=== PATIENT | female | born 1995 | race Caucasian/White ===

== ENCOUNTER 2016-07-22 22:00 | Emergency (ER) | payer BC ==
[2016-07-22] MEDS ORDERED: traMADol 50 MG Tab PO ONE (22:58)
--- NOTE | 2016-07-22 23:00 | EDM.PDOC ---
ED HPI Trauma - General Chief Complaint: Lower Extremity Injury/Pain Stated Complaint: PT FELL AND HURT RT LEG Time Seen by Provider: 07/22/16 22:52 - History of Present Illness INITIAL COMMENTS - FREE TEXT/NARRATIVE: HISTORY AND PHYSICAL: History of present illness: Patient is a healthy overweight 21-year-old female was in her usual state of good health with no systemic complaints when she slipped and fell on some stairs landing on her lower back and left posterior pelvis area. She did not hit her head pass out or black out and has no upper back pain neck pain or extremity complaints. she's had no nausea and vomiting and complains only of pain in that area. She took 800 mg of Motrin before coming here in the fall happened approximately an hour before presentation to the ER. Patient denies Review of systems: As per history of present illness and below otherwise all systems reviewed and negative. Past medical history: As per history of present illness and as reviewed below otherwise noncontributory. Surgical history: As per history of present illness and as reviewed below otherwise noncontributory. Social history: No reported history of drug or alcohol abuse. Family history: As per history of present illness and as reviewed below otherwise noncontributory. Physical exam: General: Well-developed well-nourished female who is uncomfortable with movement and is overweight. Vital signs blood noted by me HEENT: Atraumatic, normocephalic, negative for conjunctival pallor or scleral icterus, mucous membranes moist, throat clear, neck supple, nontender, trachea midline. There are no midline step-offs or defects of the cervical spine Lungs: Clear to auscultation, breath sounds equal bilaterally, chest nontender. Heart: S1S2, regular rate and rhythm no overt murmurs Abdomen: Soft, nondistended, nontender. NABS Pelvis: Stable nontender. There is no lateral hip tenderness but there is tenderness at palpation of the posterior left pelvis area PC DAC exam Genitourinary: Deferred. Rectal: Deferred. Extremities: Atraumatic, negative for cords or calf pain. Neurovascular unremarkable. Neuro: Awake, alert, oriented. Cranial nerves II through XII unremarkable. Cerebellum unremarkable. Motor and sensory unremarkable throughout. Exam nonfocal. Dorsi and plantar flexion is intact bilaterally 5/5 of the great toe and in inversion and eversion is intact. Back: There are no midline step-offs or defects of the thoracic or lumbar spine but there is exquisite soft tissue tenderness at the lumbar area throughout without ecchymosis abrasion or deformities. Diagnostics: X-ray lumbar spine and left hip with pelvis Therapeutics: Tramadol Impression: Lumbar spine/posterior left hip contusion status post fall Definitive disposition and diagnosis as appropriate pending reevaluation and review of above. Allergies/ADRs: Allergies No Known Allergies Allergy (Verified 07/22/16 22:28) Home Medications: Ambulatory Orders . 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 Musculoskeletal History: Reports: None Neurological History: Reports: None Psychiatric History: Reports: Anxiety Endocrine/Metabolic History: Reports: None Hematologic History: Reports: None Immunologic History: Reports: None Oncologic (Cancer) History: Reports: None Dermatologic History: Reports: None - Infectious Disease History Infectious Disease History: Reports: None - Past Surgical History GI Surgical History: Reports: Cholecystectomy Social & Family History - Family History Family Medical History: Noncontributory - Tobacco Use Smoking Status *Q: Never Smoker - Caffeine Use Caffeine Use: Reports: Soda - Recreational Drug Use Recreational Drug Use: No Review of Systems - Review of Systems Review Of Systems: ROS reveals no pertinent complaints other than HPI. Trauma Exam - Physical Exam Exam: See Below (See dictation) Course - Vital Signs Last Recorded V/S: Last Vital Signs Temp 37.1 C 07/22/16 22:28 Pulse 83 07/22/16 22:28 Resp 16 07/22/16 22:28 BP 136/79 07/22/16 22:28 Pulse Ox 98 07/22/16 22:28 - Orders/Labs/Meds Orders: Active Orders 24 hr Category Date Time Status Hip Min 2V or 3V w Pelvis Lt [CR] Stat Exams 07/22/16 22:57 Taken Lumbar Spine 2 or 3V [CR] Stat Exams 07/22/16 22:57 Taken Meds: Medications Discontinued Medications Generic Name Dose Route Start Last Admin Trade Name Freq PRN Reason Stop Dose Admin Tramadol HCl 100 mg 07/22/16 22:58 Ultram PO 07/22/16 22:59 ONETIME ONE Departure - Departure Time of Disposition: 00:02 Disposition: Home, Self-Care 01 Condition: good Clinical Impression: Contusion of lower back Qualifiers: Encounter type: initial encounter Qualified Code(s): S30.0XXA - Contusion of lower back and pelvis, initial encounter Contusion of hip, left Qualifiers: Encounter type: initial encounter Qualified Code(s): S70.02XA - Contusion of left hip, initial encounter Fall Qualifiers: Encounter type: initial encounter Qualified Code(s): W19.XXXA - Unspecified fall, initial encounter Forms: ED Department Discharge Additional Instructions: The following information is given to patients seen in the emergency department who are being discharged to home. This information is to outline your options for follow-up care. We provide all patients seen in our emergency department with a follow-up referral. The need for follow-up, as well as the timing and circumstances, are variable depending upon the specifics of your emergency department visit. If you don't have a primary care physician on staff, we will provide you with a referral. We always advise you to contact your personal physician following an emergency department visit to inform them of the circumstance of the visit and for follow-up with them and/or the need for any referrals to a consulting specialist. The emergency department will also refer you to a specialist when appropriate. This referral assures that you have the opportunity for followup care with a specialist. All of these measure are taken in an effort to provide you with optimal care, which includes your followup. Under all circumstances we always encourage you to contact your private physician who remains a resource for coordinating your care. When calling for followup care, please make the office aware that this follow-up is from your recent emergency room visit. If for any reason you are refused follow-up, please contact the [facility] emergency department at and ask to speak to the emergency department charge nurse. [facility] Primary care- Internal Medicine and Family [address] [address] Apply ice to areas that are swollen or tender and tried to go slowly with all motions and activities the next one week. Use [id number] Motrin/ibuprofen or Tylenol for pain and take stronger pain medication given to today as needed. You have been prescribed Ultram 50 mg from [email or web address]. Please followup with family doctor for reevaluation and care and return here as needed and as discussed - My Orders Last 24 Hours: My Active Orders 07/22/16 22:57 Hip Min 2V or 3V w Pelvis Lt [CR] Stat Lumbar Spine 2 or 3V [CR] Stat - Assessment/Plan Last 24 Hours: My Active Orders 07/22/16 22:57 Hip Min 2V or 3V w Pelvis Lt [CR] Stat Lumbar Spine 2 or 3V [CR] Stat
[2016-07-23 00:29] VITALS: BP 142/77
--- NOTE | 2016-07-23 11:27 | CR ---
EXAM DATE: 07/22/16 PATIENT'S AGE: 21 Patient: ROGERIO MARIE Facility: [place], [place] Site . Site : 1995 Study: XRay Hip w/ pelvis [id number]/17/2017 11:23:54 PM Ordering Physician: Amandeep Swan Final Report: Indication: Fall. Technique: Pelvis one view. Left hip two views. Comparison: None. Findings: No acute fracture or dislocation. No additional osseous abnormality. Soft tissues as imaged are unremarkable. Impression: No acute osseous abnormality. Dictated by Clement Shook MD @ 07/22/2016 11:43:03 PM Dictated by: Clement Shook MD @ 07/22/2016 23:43:09 (Electronic Signature) Report Signed by Proxy and Original Signed Document filed in the Medical Record. [facility]
--- NOTE | 2016-07-23 11:28 | CR ---
EXAM DATE: 07/22/16 PATIENT'S AGE: 21 Patient: ROGERIO MARIE Facility: [place], [place] Site . Site : 1995 Study: XRay Spine Lumbar [id number]/17/2017 11:24:34 PM Ordering Physician: Amandeep Swan Final Report: INDICATION: Fall. TECHNIQUE: Lumbar spine 3 view. COMPARISON: None. FINDINGS: No evidence of acute fracture or malalignment. No additional osseous abnormality. The soft tissues as imaged are unremarkable. IMPRESSION: Unremarkable lumbar spine. Dictated by Clement Shook MD @ 07/22/2016 11:45:47 PM Dictated by: Clement Shook MD @ 07/22/2016 23:46:00 (Electronic Signature) Report Signed by Proxy and Original Signed Document filed in the Medical Record. [facility]
== END 2016-07-23 00:25 | disposition home or self-care (01) ==
LOC: MW.ED 22:00
DX: S30.0XXA Contusion of lower back and pelvis, initial encounter (principal); S70.02XA Contusion of left hip, initial encounter; Z90.49 Acquired absence of other specified parts of digestive tract; W10.9XXA Fall (on) (from) unspecified stairs and steps, initial encounter
CPT/HCPCS: 72100; 73502; 99283; A9270

== ENCOUNTER 2016-12-10 13:20 | Emergency (ER) | payer BC ==
[2016-12-10] MEDS ORDERED: Albuterol/Ipratropium 3.0-0.5 MG/3 ML Neb Soln NEB ONE (13:59)
--- NOTE | 2016-12-10 14:20 | EDM.PDOC ---
ED HPI GENERAL MEDICAL PROBLEM - General Chief Complaint: Respiratory Problem Stated Complaint: SICK Time Seen by Provider: 12/10/16 14:18 Source of Information: Reports: Patient History Limitations: Reports: No Limitations - History of Present Illness INITIAL COMMENTS - FREE TEXT/NARRATIVE: History of present illness: [21-year-old female comes in complaining of sensation of shortness of breath. Patient indicates that she has been feeling ill for the last several days and it is just in the last day or 2 that she has felt increasing shortness of breath. Patient's vital signs are stable with good O2 sat] Review of systems: As per history of present illness and below otherwise all systems reviewed and negative. Past medical history: As per history of present illness and as reviewed below otherwise noncontributory. Surgical history: As per history of present illness and as reviewed below otherwise noncontributory. Social history: No reported history of drug or alcohol abuse. Family history: As per history of present illness and as reviewed below otherwise noncontributory. Physical exam: HEENT: Atraumatic, normocephalic, pupils reactive, negative for conjunctival pallor or scleral icterus, mucous membranes moist, throat clear, neck supple, nontender, trachea midline. Lungs: Clear to auscultation, breath sounds equal bilaterally but slightly diminished especially in apices, chest nontender. Heart: S1S2, regular, negative for clicks, rubs, or JVD. Abdomen: Soft, nondistended, nontender. Negative for masses or hepatosplenomegaly. Negative for costovertebral tenderness. Pelvis: Stable nontender. Genitourinary: Deferred. Rectal: Deferred. Extremities: Atraumatic, negative for cords or calf pain. Neurovascular unremarkable. Neuro: Awake, alert, oriented. Cranial nerves II through XII unremarkable. Cerebellum unremarkable. Motor and sensory unremarkable throughout. Exam nonfocal. Diagnostics: [Chest x-ray] Therapeutics: [] Impression: [Bronchitis] Plan: [Albuterol inhaler with spacer, Tessalon perles for night] Definitive disposition and diagnosis as appropriate pending reevaluation and review of above. Chest Pain Score (Numeric/FACES): 4 - Related Data Allergies Allergy/AdvReac Type Severity Reaction Status Date / Time No Known Allergies Allergy Verified 07/22/16 22:28 Home Meds: Home Meds Albuterol Sulfate [Proair Hfa] 2 puff IH Q6HR #1 hfa.aer.ad 12/10/16 [Rx] Benzonatate [Tessalon Perles] 200 mg PO TID #30 cap 12/10/16 [Rx] Inhaler, Assist Devices [Space Chamber Plus] 1 each ASDIRECTED #1 spacer 08/21 [Rx] Past Medical History HEENT History: Reports: None Cardiovascular History: Reports: None Respiratory History: Reports: None Gastrointestinal History: Reports: None Genitourinary History: Reports: None 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 Musculoskeletal History: Reports: None Neurological History: Reports: None Psychiatric History: Reports: Anxiety Endocrine/Metabolic History: Reports: None Hematologic History: Reports: None Immunologic History: Reports: None Oncologic (Cancer) History: Reports: None Dermatologic History: Reports: None - Infectious Disease History Infectious Disease History: Reports: None - Past Surgical History GI Surgical History: Reports: Cholecystectomy Social & Family History - Family History Family Medical History: Noncontributory - Tobacco Use Smoking Status *Q: Current Some Day Smoker Years of Tobacco use: 2 Packs/Tins Daily: 0.1 - Caffeine Use Caffeine Use: Reports: None - Recreational Drug Use Recreational Drug Use: No ED ROS GENERAL - Review of Systems Review Of Systems: See Below (See history of present illness) ED EXAM, GENERAL - Physical Exam Exam: See Below (See history of present illness) Course - Vital Signs Last Recorded V/S: Last Vital Signs Temp 36.3 C 12/10/16 13:36 Pulse 97 12/10/16 13:36 Resp 18 12/10/16 13:36 BP 138/85 12/10/16 13:36 Pulse Ox 98 12/10/16 13:36 - Orders/Labs/Meds Orders: Active Orders 24 hr Category Date Time Status RT Aerosol Therapy [RC] ASDIRECTED Care 12/10/16 13:59 Active Labs: Laboratory Tests 12/10/16 Range/Units 14:40 Urine Color YELLOW Urine Appearance CLEAR Urine pH 6.0 (5.0-8.0) Ur Specific [place] 1.020 (1.001-1.035) Urine Protein NEGATIVE (NEGATIVE) mg/dL Urine Glucose (UA) NEGATIVE (NEGATIVE) mg/dL Urine Ketones 15 H (NEGATIVE) mg/dL Urine Occult Blood TRACE-INTACT (NEGATIVE) Urine Nitrite NEGATIVE (NEGATIVE) Urine Bilirubin NEGATIVE (NEGATIVE) Urine Urobilinogen 0.2 (<2.0) EU/dL Ur Leukocyte Esterase SMALL (NEGATIVE) Urine RBC 2-5 (0-2/HPF) Urine WBC 25-30 (0-5/HPF) Ur Epithelial Cells FEW (NONE-FEW) Urine Bacteria FEW (NEGATIVE) Meds: Medications Discontinued Medications Generic Name Dose Route Start Last Admin Trade Name Freq PRN Reason Stop Dose Admin Albuterol/Ipratropium 3 ml 12/10/16 13:59 12/10/16 14:22 Duoneb 3.0-0.5 Mg/3 Ml NEB 12/10/16 14:00 3 ml ONETIME ONE Administration Departure - Departure Time of Disposition: 15:23 Disposition: Home, Self-Care 01 Condition: Good Clinical Impression: Acute bronchiolitis - Discharge Information Instructions: Acute Bronchitis, [id number] Referrals: PCP,None [Primary Care Provider] - Forms: ED Department Discharge Additional Instructions: The following information is given to patients seen in the emergency department who are being discharged to home. This information is to outline your options for follow-up care. We provide all patients seen in our emergency department with a follow-up referral. The need for follow-up, as well as the timing and circumstances, are variable depending upon the specifics of your emergency department visit. If you don't have a primary care physician on staff, we will provide you with a referral. We always advise you to contact your personal physician following an emergency department visit to inform them of the circumstance of the visit and for follow-up with them and/or the need for any referrals to a consulting specialist. The emergency department will also refer you to a specialist when appropriate. This referral assures that you have the opportunity for follow-up care with a specialist. All of these measure are taken in an effort to provide you with optimal care, which includes your follow-up. Under all circumstances we always encourage you to contact your private physician who remains a resource for coordinating your care. When calling for follow-up care, please make the office aware that this follow-up is from your recent emergency room visit. If for any reason you are refused follow-up, please contact the [facility] Emergency Department at and asked to speak to the emergency department charge nurse. Take medication as directed Follow-up with PCP 1-2 days return to ED as needed as discussed - My Orders Last 24 Hours: My Active Orders 12/10/16 13:59 RT Aerosol Therapy [RC] ASDIRECTED - Assessment/Plan Last 24 Hours: My Active Orders 12/10/16 13:59 RT Aerosol Therapy [RC] ASDIRECTED
--- NOTE | 2016-12-10 15:12 | CR ---
EXAMINATION: Two-view chest (PA and Lateral views). HISTORY: Shortness of breath. FINDINGS: The trachea is midline. The cardiomediastinal silhouette is within normal limits. No pulmonary infilt rates, effusions or pneumothorax. Osseous structures appear unremarkable. IMPRESSION: No acute cardiopulmonary process.
[2016-12-10 15:57] VITALS: BP 155/85
== END 2016-12-10 15:50 | disposition home or self-care (01) ==
LOC: MW.ED 13:20
DX: J21.9 Acute bronchiolitis, unspecified (principal); F17.210 Nicotine dependence, cigarettes, uncomplicated; Z90.49 Acquired absence of other specified parts of digestive tract
CPT/HCPCS: 71020; 71020-26; 81001; 94664; 99282; 99285

== ENCOUNTER 2017-06-29 21:59 | Emergency (ER) | payer BC, OTHER ==
--- NOTE | 2017-06-29 22:06 | EDM.PDOC ---
ED HPI GENERAL MEDICAL PROBLEM - General Stated Complaint: LT KNEE HURTS Time Seen by Provider: 06/29/17 22:03 - History of Present Illness INITIAL COMMENTS - FREE TEXT/NARRATIVE: HISTORY AND PHYSICAL: History of present illness: Patient 22-year-old female shots a concern of acute left knee injury states she felt like her patella dislocated spontaneously and reduce spontaneously prior to arrival was no other associated trauma or concern. She states she has had this happen on a prior occasion. Review of systems: As per history of present illness and below otherwise all systems reviewed and negative. Past medical history: As per history of present illness and as reviewed below otherwise noncontributory. Surgical history: As per history of present illness and as reviewed below otherwise noncontributory. Social history: No reported history of drug or alcohol abuse. Family history: As per history of present illness and as reviewed below otherwise noncontributory. Physical exam: HEENT: Atraumatic, normocephalic, pupils reactive, negative for conjunctival pallor or scleral icterus, mucous membranes moist, throat clear, neck supple, nontender, trachea midline. Lungs: Clear to auscultation, breath sounds equal bilaterally, chest nontender. Heart: S1S2, regular, negative for clicks, rubs, or JVD. Abdomen: Soft, nondistended, nontender. Negative for masses or hepatosplenomegaly. Negative for costovertebral tenderness. Pelvis: Stable nontender. Genitourinary: Deferred. Rectal: Deferred. Extremities: Atraumatic, negative for cords or calf pain. Neurovascular unremarkable. Left knee is without gross deformity there's no crepitation or point tenderness is grossly stable Neuro: Awake, alert, oriented. Cranial nerves II through XII unremarkable. Cerebellum unremarkable. Motor and sensory unremarkable throughout. Exam nonfocal. Diagnostics: X-ray left knee Therapeutics: Immobilizer crutches when necessary Impression: #1 acute left knee injury Definitive disposition and diagnosis as appropriate pending reevaluation and review of above. 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 Musculoskeletal History: Reports: None Neurological History: Reports: None Psychiatric History: Reports: Anxiety Endocrine/Metabolic History: Reports: None Hematologic History: Reports: None Immunologic History: Reports: None Oncologic (Cancer) History: Reports: None Dermatologic History: Reports: None - Infectious Disease History Infectious Disease History: Reports: None - Past Surgical History GI Surgical History: Reports: Cholecystectomy Social & Family History - Family History Family Medical History: Noncontributory - Tobacco Use Smoking Status *Q: Current Some Day Smoker Years of Tobacco use: 2 Packs/Tins Daily: 0.1 - Caffeine Use Caffeine Use: Reports: None - Recreational Drug Use Recreational Drug Use: No ED ROS GENERAL - Review of Systems Review Of Systems: ROS reveals no pertinent complaints other than HPI. ED EXAM, GENERAL - Physical Exam Exam: See Below (See dictation) Departure - Departure Time of Disposition: 22:05 Disposition: Home, Self-Care 01 Condition: Good Clinical Impression: Knee injury - Discharge Information Additional Instructions: The following information is given to patients seen in the emergency department who are being discharged to home. This information is to outline your options for follow-up care. We provide all patients seen in our emergency department with a follow-up referral. The need for follow-up, as well as the timing and circumstances, are variable depending upon the specifics of your emergency department visit. If you don't have a primary care physician on staff, we will provide you with a referral. We always advise you to contact your personal physician following an emergency department visit to inform them of the circumstance of the visit and for follow-up with them and/or the need for any referrals to a consulting specialist. The emergency department will also refer you to a specialist when appropriate. This referral assures that you have the opportunity for followup care with a specialist. All of these measure are taken in an effort to provide you with optimal care, which includes your followup. Under all circumstances we always encourage you to contact your private physician who remains a resource for coordinating your care. When calling for followup care, please make the office aware that this follow-up is from your recent emergency room visit. If for any reason you are refused follow-up, please contact the [facility] emergency department at and asked to speak to the emergency department charge nurse. [facility] [address], [address] [place] [address] Knee immobilizer crutches as directed Motrin/Tylenol as directed return as needed as discussed]
[2017-06-29 22:52] VITALS: BP 152/86
--- NOTE | 2017-06-30 16:20 | CR ---
EXAM DATE: 06/29/17 PATIENT'S AGE: 22 Patient: ROGERIO MARIE Facility: [place], [place] Site . Site : 1995 Study: XRay Knee Left [id number]/25/2018 10:20:39 PM Ordering Physician: Poli Ramirez Final Report: INDICATION: Patient states pain in left knee. TECHNIQUE: Knee radiograph 2 views left COMPARISON: None FINDINGS: Bones: No acute fractures or aggressive bone lesions are identified. Patella monalisa noted. Joints: The joint spaces of the medial, lateral, and patellofemoral compartments are unremarkable. No significant knee effusion is seen. Soft tissue: Unremarkable. No radiopaque foreign bodies are seen. IMPRESSION: 1. No acute osseous injuries or abnormalities are noted. 2. Patella monalisa noted. Dictated by: Jet Limon MD @ 06/29/2017 22:38:23 (Electronic Signature) Report Signed by Proxy. MTDDanette
== END 2017-06-29 23:04 | disposition home or self-care (01) ==
LOC: MW.ED 21:59
DX: S89.92XA Unspecified injury of left lower leg, initial encounter (principal); F17.210 Nicotine dependence, cigarettes, uncomplicated; X58.XXXA Exposure to other specified factors, initial encounter
CPT/HCPCS: 73560-26-LT; 73560-LT; 99283

== ENCOUNTER 2018-01-02 18:47 | Emergency (ER) | payer OTHER ==
[2018-01-02] MEDS ORDERED: Sodium Chloride 0.9% 10 ML Syringe FLUSH PRN (18:59)
[2018-01-02] MEDS ORDERED: Sodium Chloride 0.9% 2.5 ML Syringe FLUSH PRN (18:59)
[2018-01-02] MEDS ORDERED: Sodium Chloride 0.9% 1,000 ML IV ONE (18:59)
--- NOTE | 2018-01-02 19:02 | EDM.PDOC ---
ED HPI GENERAL MEDICAL PROBLEM - General Chief Complaint: Chest Pain Stated Complaint: CHEST PAINS FOR A COUPLE HOURS AND HEART IS RACING Time Seen by Provider: 01/02/18 19:02 Source of Information: Reports: Patient History Limitations: Reports: No Limitations - History of Present Illness INITIAL COMMENTS - FREE TEXT/NARRATIVE: HISTORY AND PHYSICAL: History of present illness: Patient is a 22-year-old female here with complaint of chest pain since 3 this afternoon. She describes the pain as sharp and stabbing and currently has no pain. She reports pain in the middle and left side of chest and intermitted left arm numbness and tingling. She denies shortness of breath. She states that she felt her heart racing earlier today but not currently. She reports that yesterday she was walking around [facility] and felt like she was going to pass out and reports she had an episode of bloody diarrhea yesterday. She states she had diarrhea this morning but denies any blood in it today. She states she has felt nauseas but denies any vomiting or abdominal pain. Patient denies any recent travel. She is on on OCPs. Patient is currently on her menses. She denies any recent antibiotic use. Review of systems: As per history of present illness and below otherwise all systems reviewed and negative. Past medical history: As per history of present illness and as reviewed below otherwise noncontributory. Surgical history: As per history of present illness and as reviewed below otherwise noncontributory. Social history: No reported history of drug or alcohol abuse. Family history: As per history of present illness and as reviewed below otherwise noncontributory. Physical exam: General: Patient sitting comfortably in no acute distress and nontoxic appearing HEENT: Atraumatic, normocephalic, pupils reactive, negative for conjunctival pallor or scleral icterus, mucous membranes moist, throat clear, neck supple, nontender, trachea midline. No meningeal signs. Lungs: Tender to palpation of left anterior chest wall. Clear to auscultation, breath sounds equal bilaterally Heart: S1S2, regular, negative for clicks, rubs, or overt murmur. Abdomen: Obese, soft, nondistended, nontender. Negative for masses or hepatosplenomegaly. Negative for costovertebral tenderness. Pelvis: Stable nontender. Genitourinary: Deferred. Rectal: Deferred. Extremities: Positive Tinels sign left wrist. Atraumatic, negative for cords or calf pain. Neurovascular unremarkable. Neuro: Awake, alert, oriented. Cranial nerves II through XII unremarkable. Cerebellum unremarkable. Motor and sensory unremarkable throughout. Exam nonfocal. Notes: Patient was unable to give a stool sample. I will treat for an infectious diarrhea with azithromycin and have her follow up with general surgery. H&H are wnl. Diagnostics: EKG, CBC, CMP, Troponin, UA, stool studies, cdiff Positive hemoccult Therapeutics: 1L NS IV Prescriptions: Azithromycin Impression: Chest wall pain Bloody diarrhea Left arm parasthesias. Plan: 1. Take antibiotic as directed 2. Follow up with general surgery and primary care provider 3. Return to ED as needed as discussed Definitive disposition and diagnosis as appropriate pending reevaluation and review of above. chest Pain Score (Numeric/FACES): 4 - Related Data Allergies Allergy/AdvReac Type Severity Reaction Status Date / Time No Known Allergies Allergy Verified 01/02/18 18:53 Home Meds: Home Meds Azithromycin 500 mg PO DAILY 3 Days #3 tablet 01/02/18 [Rx] Past Medical History HEENT History: Reports: None Cardiovascular History: Reports: None Respiratory History: Reports: None Gastrointestinal History: Reports: None Genitourinary History: Reports: None PUNCH MOLDER History: Reports: None Musculoskeletal History: Reports: None Neurological History: Reports: None Psychiatric History: Reports: Anxiety Endocrine/Metabolic History: Reports: None Hematologic History: Reports: None Immunologic History: Reports: None Oncologic (Cancer) History: Reports: None Dermatologic History: Reports: None - Infectious Disease History Infectious Disease History: Reports: None - Past Surgical History GI Surgical History: Reports: Cholecystectomy Social & Family History - Family History Family Medical History: Noncontributory - Tobacco Use Smoking Status *Q: Current Every Day Smoker Years of Tobacco use: 1 Packs/Tins Daily: 0.5 - Caffeine Use Caffeine Use: Reports: None - Recreational Drug Use Recreational Drug Use: No ED ROS GENERAL - Review of Systems Review Of Systems: ROS reveals no pertinent complaints other than HPI. ED EXAM, GENERAL - Physical Exam Exam: See Below (see dictation) Course - Vital Signs Last Recorded V/S: Last Vital Signs Temp 36.6 C 01/02/18 18:54 Pulse 63 01/02/18 19:46 Resp 16 01/02/18 19:46 BP 145/84 H 01/02/18 19:46 Pulse Ox 100 01/02/18 19:46 - Orders/Labs/Meds Orders: Active Orders 24 hr Category Date Time Status EKG Documentation Completion [RC] STAT Care 01/02/18 18:58 Active Chest 1V Frontal [CR] Stat Exams 01/02/18 19:07 Taken CDIFF TOX A+B [OP] Stat Lab 01/02/18 19:01 Ordered CULTURE STOOL + CAMPY+SHIGATOX [RM] Stat Lab 01/02/18 19:01 Ordered CULTURE URINE [RM] Stat Lab 01/02/18 19:25 Received Sodium Chloride 0.9% [Saline Flush] Med 01/02/18 18:59 Active 10 ml FLUSH ASDIRECTED PRN Sodium Chloride 0.9% [Saline Flush] Med 01/02/18 18:59 Active 2.5 ml FLUSH ASDIRECTED PRN Saline Lock Insert [OM.PC] Stat Oth 01/02/18 18:58 Ordered Medication Orders Sodium Chloride (Saline Flush) 10 ml FLUSH ASDIRECTED PRN PRN Reason: Keep Vein Open Last Admin: 01/02/18 19:11 Dose: 10 ml Sodium Chloride (Saline Flush) 2.5 ml FLUSH ASDIRECTED PRN PRN Reason: Keep Vein Open Last Admin: 01/02/18 19:11 Dose: 2.5 ml Labs: Laboratory Tests 01/02/18 01/02/18 01/02/18 Range/Units 19:06 19:06 19:25 WBC 10.42 (4.0-11.0) K/uL RBC 4.96 (4.30-5.90) M/uL Hgb 13.3 (12.0-16.0) g/dL Hct 39.7 (36.0-46.0) % MCV 80.0 (80.0-98.0) fL MCH 26.8 L (27.0-32.0) pg MCHC 33.5 (31.0-37.0) g/dL RDW Std Deviation 39.1 (28.0-62.0) fl RDW Coeff of Francisco 13 (11.0-15.0) % Plt Count 230 (150-400) K/uL MPV 10.00 (7.40-12.00) fL Neut % (Auto) 69.5 (48.0-80.0) % Lymph % (Auto) 22.4 (16.0-40.0) % Bates % (Auto) 4.6 (0.0-15.0) % Eos % (Auto) 3.4 (0.0-7.0) % Baso % (Auto) 0.1 (0.0-1.5) % Neut # (Auto) 7.3 H (1.4-5.7) K/uL Lymph # (Auto) 2.3 (0.6-2.4) K/uL Bates # (Auto) 0.5 (0.0-0.8) K/uL Eos # (Auto) 0.4 (0.0-0.7) K/uL Baso # (Auto) 0.0 (0.0-0.1) K/uL Nucleated RBC % 0.0 /100WBC Nucleated RBCs # 0 K/uL Sodium 138 (136-145) mmol/L Potassium 3.8 (3.5-5.1) mmol/L Chloride 105 (98-107) mmol/L Carbon Dioxide 23.8 (21.0-32.0) mmol/L BUN 10 (7.0-18.0) mg/dL Creatinine 0.8 (0.6-1.0) mg/dL Est Cr Clr Drug Dosing 105.45 mL/min Estimated GFR (MDRD) > 60.0 ml/min Glucose 121 H (74-106) mg/dL Calcium 8.2 L (8.5-10.1) mg/dL Total Bilirubin 0.2 (0.2-1.0) mg/dL AST 14 L (15-37) IU/L ALT 18 (14-63) IU/L Alkaline Phosphatase 93 (46-116) U/L Troponin I < 0.050 (0.000-0.056) ng/mL Total Protein 7.0 (6.4-8.2) g/dL Albumin 3.7 (3.4-5.0) g/dL Globulin 3.3 (2.0-3.5) g/dL Albumin/Globulin Ratio 1.1 L (1.3-2.8) Urine Color RED Urine Appearance SLT CLOUDY Urine pH 5.5 (5.0-8.0) Ur Specific [place] 1.025 (1.001-1.035) Urine Protein TRACE (NEGATIVE) mg/dL Urine Glucose (UA) NEGATIVE (NEGATIVE) mg/dL Urine Ketones NEGATIVE (NEGATIVE) mg/dL Urine Occult Blood LARGE H (NEGATIVE) Urine Nitrite NEGATIVE (NEGATIVE) Urine Bilirubin NEGATIVE (NEGATIVE) Urine Urobilinogen 0.2 (<2.0) EU/dL Ur Leukocyte Esterase SMALL (NEGATIVE) Urine RBC >100 H (0-2/HPF) Urine WBC 1-3 (0-5/HPF) Ur Epithelial Cells FEW (NONE-FEW) Urine Bacteria FEW (NEGATIVE) Meds: Medications Generic Name Dose Route Start Last Admin Trade Name Freq PRN Reason Stop Dose Admin Sodium Chloride 10 ml 01/02/18 18:59 01/02/18 19:11 Saline Flush FLUSH 10 ml ASDIRECTED PRN Administration Keep Vein Open Sodium Chloride 2.5 ml 01/02/18 18:59 01/02/18 19:11 Saline Flush FLUSH 2.5 ml ASDIRECTED PRN Administration Keep Vein Open Discontinued Medications Generic Name Dose Route Start Last Admin Trade Name Freq PRN Reason Stop Dose Admin Sodium Chloride 1,000 mls @ 999 mls/hr 01/02/18 18:59 01/02/18 19:11 Normal Saline IV 01/02/18 19:59 999 mls/hr STAT ONE Administration Departure - Departure Time of Disposition: 20:32 Disposition: Home, Self-Care 01 Condition: Good Clinical Impression: Chest wall pain, Bloody diarrhea, Arm paresthesia, left Prescriptions: Azithromycin 500 mg PO DAILY 3 Days #3 tablet Referrals: PCP,None [Primary Care Provider] - Forms: ED Department Discharge Additional Instructions: The following information is given to patients seen in the emergency department who are being discharged to home. This information is to outline your options for follow-up care. We provide all patients seen in our emergency department with a follow-up referral. The need for follow-up, as well as the timing and circumstances, are variable depending upon the specifics of your emergency department visit. If you don't have a primary care physician on staff, we will provide you with a referral. We always advise you to contact your personal physician following an emergency department visit to inform them of the circumstance of the visit and for follow-up with them and/or the need for any referrals to a consulting specialist. The emergency department will also refer you to a specialist when appropriate. This referral assures that you have the opportunity for follow-up care with a specialist. All of these measure are taken in an effort to provide you with optimal care, which includes your follow-up. Under all circumstances we always encourage you to contact your private physician who remains a resource for coordinating your care. When calling for follow-up care, please make the office aware that this follow-up is from your recent emergency room visit. If for any reason you are refused follow-up, please contact the [facility] Emergency Department at and asked to speak to the emergency department charge nurse. [facility] Specialty Care - General Surgery Professional Building [address] [place] [address], [address] [place] [id number] [facility] Primary [facility] [address] [place] [address] [place] [address] 1. Take antibiotic as directed 2. Follow up with general surgery and primary care provider. Please call numbers above to schedule appointment. 3. Return to ED as needed as discussed - My Orders Last 24 Hours: My Active Orders 01/02/18 18:58 EKG Documentation Completion [RC] STAT Saline Lock Insert [OM.PC] Stat 01/02/18 18:59 Sodium Chloride 0.9% [Saline Flush] 10 ml FLUSH ASDIRECTED PRN Sodium Chloride 0.9% [Saline Flush] 2.5 ml FLUSH ASDIRECTED PRN 01/02/18 19:01 CDIFF TOX A+B [OP] Stat CULTURE STOOL + CAMPY+SHIGATOX [RM] Stat 01/02/18 19:07 Chest 1V Frontal [CR] Stat 01/02/18 19:25 CULTURE URINE [RM] Stat - Assessment/Plan Last 24 Hours: My Active Orders 01/02/18 18:58 EKG Documentation Completion [RC] STAT Saline Lock Insert [OM.PC] Stat 01/02/18 18:59 Sodium Chloride 0.9% [Saline Flush] 10 ml FLUSH ASDIRECTED PRN Sodium Chloride 0.9% [Saline Flush] 2.5 ml FLUSH ASDIRECTED PRN 01/02/18 19:01 CDIFF TOX A+B [OP] Stat CULTURE STOOL + CAMPY+SHIGATOX [RM] Stat 01/02/18 19:07 Chest 1V Frontal [CR] Stat 01/02/18 19:25 CULTURE URINE [RM] Stat
[2018-01-02 19:49] LABS: CHLORIDE,CL 105 mmol/L (98-107); SODIUM,NA 138 mmol/L (136-145)
[2018-01-02 20:49] VITALS: BP 154/81
--- NOTE | 2018-01-05 10:30 | CR ---
EXAM DATE: 01/02/18 PATIENT'S AGE: 22 Patient: ROGERIO MARIE Facility: [place], [place] Site . Site : 1995 Study: XRay Chest [id number]/28/2018 7:47:49 PM Ordering Physician: Doctor Hahn Final Report: INDICATION: Chest pain. Shortness of breath. TECHNIQUE: Portable chest. COMPARISON: The heart and pulmonary vasculature are normal. Lungs are clear. No consolidations or pleural effusions are identified. Trachea is midline. No pneumothorax. IMPRESSION: No evidence of acute disease. Dictated by Pedrito Clement MD @ Jan 02 2018 7:59PM (Electronic Signature) Report Signed by Proxy. HILARIO
== END 2018-01-02 20:46 | disposition home or self-care (01) ==
LOC: MW.ED 18:47
DX: R07.89 Other chest pain (principal); R19.7 Diarrhea, unspecified; R20.2 Paresthesia of skin; F17.210 Nicotine dependence, cigarettes, uncomplicated; Z90.49 Acquired absence of other specified parts of digestive tract
CPT/HCPCS: 36415; 71045; 80053; 81001; 84484; 85025; 87086; 93005; 96360; 96361; 99285; J7040; 99283

== ENCOUNTER 2018-07-24 10:32 | Emergency (ER) | payer OTHER ==
--- NOTE | 2018-07-24 10:43 | EDM.PDOC ---
ED HPI GENERAL MEDICAL PROBLEM - General Chief Complaint: Gastrointestinal Problem Stated Complaint: RECTAL BLEEDING Time Seen by Provider: 07/24/18 10:33 Source of Information: Reports: Patient History Limitations: Reports: No Limitations - History of Present Illness INITIAL COMMENTS - FREE TEXT/NARRATIVE: HISTORY AND PHYSICAL: History of present illness: Patient is a 23-year-old female presents to the ED today with concern of rectal bleeding that occurred this morning. Patient states she was having a bowel movement and then after the bowel movement noticed a fair amount of blood in the toilet. Patient states the bowel movement did not hurt and was performed. Patient states the improvement of blood is similar to a menstrual cycle. Patient states she is unsure if she has hemorrhoids. Patient denies any other symptoms at this time. Patient states the bleeding stopped immediately. Patient denies fever, chills, chest pain, shortness of breath, or cough. Denies headache, neck stiff ness, change in vision, syncope, or near syncope. Denies nausea, vomiting, abdominal pain, diarrhea, constipation, or dysuria. Has not noted any blood in urine. Patient has been eating and drinking appropriately. Patient has a history of hypertension but denies any other health history. Review of systems: As per history of present illness and below otherwise all systems reviewed and negative. Past medical history: As per history of present illness and as reviewed below otherwise noncontributory. Surgical history: As per history of present illness and as reviewed below otherwise noncontributory. Social history: See social history for further information Family history: As per history of present illness and as reviewed below otherwise noncontributory. Physical exam: Exam is limited due to body habitus. General: Patient is alert, oriented, and in no acute distress. Patient sitting comfortably on exam table. HEENT: Atraumatic, normocephalic, pupils equal and reactive bilaterally, negative for conjunctival pallor or scleral icterus, mucous membranes moist, TMs normal bilaterally, throat clear, neck supple, nontender, trachea midline. No drooling or trismus noted. No meningeal signs. No hot potato voice noted. Lungs: Clear to auscultation, breath sounds equal bilaterally, chest nontender. Heart: S1S2, regular rate and rhythm without overt murmur Abdomen: Morbidly obese, soft, nondistended, nontender. Positive bowel sounds are throughout all quadrants. Negative for masses or hepatosplenomegaly. Negative for costovertebral tenderness. Pelvis: Stable nontender. Genitourinary: Deferred. Rectal: Exam is limited due to body habitus. There is capo, red blood dried around rectum without active bleeding. No obvious external hemorrhoid. Hemoccult positive. There is a small internal hemorrhoid at the 4 o'clock position. Skin: Intact, warm, dry. No lesions or rashes noted. Extremities: Atraumatic, negative for cords or calf pain. Neurovascular unremarkable. Neuro: Awake, alert, oriented. Cranial nerves II through XII unremarkable. Cerebellum unremarkable. Motor and sensory unremarkable throughout. Exam nonfocal. Notes: Dr. Ashton was verbally consulted on patient. Patient does have a small internal hemorrhoid on exam. Discussed the importance and need for follow-up with the general surgery. Official consult has been placed in the ED for General surgery. Voices understanding and is agreeable to plan of care. Denies any further questions or concerns at this time. Diagnostics: CBC, CMP, Hemoccult, UA, urine hCG, PT/INR, PTT Therapeutics: None Prescription: Macrobid Impression: Internal hemorrhoid Rectal bleeding, unspecified Urinary tract infection Plan: 1. Encourage adequate fluid and fiber intake as this will help minimize hemorrhoid formation. You can use OTC Preparation H for symptomatic relief. 2. Follow up with your primary care provider and General Surgery as discussed. Take medications as prescribed. 3. Return to the ED as needed and as discussed. Definitive disposition and diagnosis as appropriate pending reevaluation and review of above. 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 Musculoskeletal History: Reports: None Neurological History: Reports: None Psychiatric History: Reports: Anxiety Endocrine/Metabolic History: Reports: None Hematologic History: Reports: None Immunologic History: Reports: None Oncologic (Cancer) History: Reports: None Dermatologic History: Reports: None - Infectious Disease History Infectious Disease History: Reports: None - Past Surgical History GI Surgical History: Reports: Cholecystectomy Social & Family History - Family History Family Medical History: Noncontributory - Caffeine Use Caffeine Use: Reports: None ED ROS GENERAL - Review of Systems Review Of Systems: ROS reveals no pertinent complaints other than HPI. ED EXAM, GI/ABD - Physical Exam Exam: See Below (See dictation) Course - Vital Signs Last Recorded V/S: Last Vital Signs Temp 36.4 C 07/24/18 10:38 Pulse 77 07/24/18 10:38 Resp 16 07/24/18 10:38 BP 148/94 H 07/24/18 10:38 Pulse Ox 98 07/24/18 10:38 - Orders/Labs/Meds Orders: Active Orders 24 hr Category Date Time Status Communication Order [RC] STAT Care 07/24/18 11:09 Active Hemoccult [Fecal Occult Blood Collection] [RC] Care 07/24/18 10:47 Active ASDIRECTED COMPREHENSIVE METABOLIC PN,CMP [CHEM] Stat Lab 07/24/18 11:08 Received UA RFX WILY AND CULT IF INDIC [URIN] Stat Lab 07/24/18 11:14 Received Labs: Laboratory Tests 07/24/18 07/24/18 07/24/18 Range/Units 11:08 11:08 11:08 WBC 6.37 (4.0-11.0) K/uL RBC 5.01 (4.30-5.90) M/uL Hgb 13.5 (12.0-16.0) g/dL Hct 40.5 (36.0-46.0) % MCV 80.8 (80.0-98.0) fL MCH 26.9 L (27.0-32.0) pg MCHC 33.3 (31.0-37.0) g/dL RDW Std Deviation 39.6 (28.0-62.0) fl RDW Coeff of Francisco 13 (11.0-15.0) % Plt Count 226 (150-400) K/uL MPV 10.10 (7.40-12.00) fL Neut % (Auto) 64.5 (48.0-80.0) % Lymph % (Auto) 27.9 (16.0-40.0) % Bryan % (Auto) 4.2 (0.0-15.0) % Eos % (Auto) 3.1 (0.0-7.0) % Baso % (Auto) 0.3 (0.0-1.5) % Neut # (Auto) 4.1 (1.4-5.7) K/uL Lymph # (Auto) 1.8 (0.6-2.4) K/uL Bryan # (Auto) 0.3 (0.0-0.8) K/uL Eos # (Auto) 0.2 (0.0-0.7) K/uL Baso # (Auto) 0.0 (0.0-0.1) K/uL Nucleated RBC % 0.0 /100WBC Nucleated RBCs # 0 K/uL INR 0.96 APTT 27.7 (18.6-31.3) SEC Sodium 141 (136-145) mmol/L Potassium 4.0 (3.5-5.1) mmol/L Chloride 106 (98-107) mmol/L Carbon Dioxide 22.7 (21.0-32.0) mmol/L BUN 16 (7.0-18.0) mg/dL Creatinine 0.8 (0.6-1.0) mg/dL Est Cr Clr Drug Dosing 104.54 mL/min Estimated GFR (MDRD) > 60.0 ml/min Glucose 95 (74-106) mg/dL Calcium 9.0 (8.5-10.1) mg/dL Total Bilirubin 0.3 (0.2-1.0) mg/dL AST 15 (15-37) IU/L ALT 28 (14-63) IU/L Alkaline Phosphatase 87 (46-116) U/L Total Protein 7.2 (6.4-8.2) g/dL Albumin 3.8 (3.4-5.0) g/dL Globulin 3.4 (2.6-4.0) g/dL Albumin/Globulin Ratio 1.1 (0.9-1.6) Urine Color Urine Appearance Urine pH (5.0-8.0) Ur Specific [place] (1.001-1.035) Urine Protein (NEGATIVE) mg/dL Urine Glucose (UA) (NEGATIVE) mg/dL Urine Ketones (NEGATIVE) mg/dL Urine Occult Blood (NEGATIVE) Urine Nitrite (NEGATIVE) Urine Bilirubin (NEGATIVE) Urine Urobilinogen (<2.0) EU/dL Ur Leukocyte Esterase (NEGATIVE) Urine RBC (0-2/HPF) Urine WBC (0-5/HPF) Ur Epithelial Cells (NONE-FEW) Amorphous Sediment (NEGATIVE) Urine Bacteria (NEGATIVE) Urine Mucus (NONE-MOD) Urine HCG, Qual (NEGATIVE) 07/24/18 07/24/18 Range/Units 11:14 11:14 WBC (4.0-11.0) K/uL RBC (4.30-5.90) M/uL Hgb (12.0-16.0) g/dL Hct (36.0-46.0) % MCV (80.0-98.0) fL MCH (27.0-32.0) pg MCHC (31.0-37.0) g/dL RDW Std Deviation (28.0-62.0) fl RDW Coeff of Francisco (11.0-15.0) % Plt Count (150-400) K/uL MPV (7.40-12.00) fL Neut % (Auto) (48.0-80.0) % Lymph % (Auto) (16.0-40.0) % Bryan % (Auto) (0.0-15.0) % Eos % (Auto) (0.0-7.0) % Baso % (Auto) (0.0-1.5) % Neut # (Auto) (1.4-5.7) K/uL Lymph # (Auto) (0.6-2.4) K/uL Bryan # (Auto) (0.0-0.8) K/uL Eos # (Auto) (0.0-0.7) K/uL Baso # (Auto) (0.0-0.1) K/uL Nucleated RBC % /100WBC Nucleated RBCs # K/uL INR APTT (18.6-31.3) SEC Sodium (136-145) mmol/L Potassium (3.5-5.1) mmol/L Chloride (98-107) mmol/L Carbon Dioxide (21.0-32.0) mmol/L BUN (7.0-18.0) mg/dL Creatinine (0.6-1.0) mg/dL Est Cr Clr Drug Dosing mL/min Estimated GFR (MDRD) ml/min Glucose (74-106) mg/dL Calcium (8.5-10.1) mg/dL Total Bilirubin (0.2-1.0) mg/dL AST (15-37) IU/L ALT (14-63) IU/L Alkaline Phosphatase (46-116) U/L Total Protein (6.4-8.2) g/dL Albumin (3.4-5.0) g/dL Globulin (2.6-4.0) g/dL Albumin/Globulin Ratio (0.9-1.6) Urine Color YELLOW Urine Appearance SLT CLOUDY Urine pH 6.0 (5.0-8.0) Ur Specific [place] 1.015 (1.001-1.035) Urine Protein NEGATIVE (NEGATIVE) mg/dL Urine Glucose (UA) NEGATIVE (NEGATIVE) mg/dL Urine Ketones NEGATIVE (NEGATIVE) mg/dL Urine Occult Blood LARGE H (NEGATIVE) Urine Nitrite NEGATIVE (NEGATIVE) Urine Bilirubin NEGATIVE (NEGATIVE) Urine Urobilinogen 0.2 (<2.0) EU/dL Ur Leukocyte Esterase TRACE H (NEGATIVE) Urine RBC 6-10 (0-2/HPF) Urine WBC 2-4 (0-5/HPF) Ur Epithelial Cells MODERATE (NONE-FEW) Amorphous Sediment LIGHT (NEGATIVE) Urine Bacteria 1+ H (NEGATIVE) Urine Mucus LIGHT (NONE-MOD) Urine HCG, Qual NEGATIVE (NEGATIVE) Departure - Departure Time of Disposition: 12:01 Disposition: Home, Self-Care 01 Clinical Impression: Internal hemorrhoid, Rectal bleeding, UTI, Urinary tract infectious disease - Discharge Information Instructions: Hemorrhoids, [id number], Rectal Bleeding, [id number] Referrals: Edilma Pavon MD [Primary Care Provider] - Forms: ED Department Discharge Additional Instructions: The following information is given to patients seen in the emergency department who are being discharged to home. This information is to outline your options for follow-up care. We provide all patients seen in our emergency department with a follow-up referral. The need for follow-up, as well as the timing and circumstances, are variable depending upon the specifics of your emergency department visit. If you don't have a primary care physician on staff, we will provide you with a referral. We always advise you to contact your personal physician following an emergency department visit to inform them of the circumstance of the visit and for follow-up with them and/or the need for any referrals to a consulting specialist. The emergency department will also refer you to a specialist when appropriate. This referral assures that you have the opportunity for follow-up care with a specialist. All of these measure are taken in an effort to provide you with optimal care, which includes your follow-up. Under all circumstances we always encourage you to contact your private physician who remains a resource for coordinating your care. When calling for follow-up care, please make the office aware that this follow-up is from your recent emergency room visit. If for any reason you are refused follow-up, please contact the [facility] Emergency Department at and asked to speak to the emergency department charge nurse. [facility] Primary Care [address] [place] [id number] [place] [address] 1. Encourage adequate fluid and fiber intake as this will help minimize hemorrhoid formation. You can use OTC Preparation H for symptomatic relief. 2. Follow up with your primary care provider and General Surgery as discussed. Take medications as prescribed. 3. Return to the ED as needed and as discussed. - My Orders Last 24 Hours: My Active Orders 07/24/18 10:47 Hemoccult [Fecal Occult Blood Collection] [] ASDIRECTED 07/24/18 11:08 COMPREHENSIVE METABOLIC PN,CMP [CHEM] Stat 07/24/18 11:09 Communication Order [RC] STAT 07/24/18 11:14 UA RFX WILY AND CULT IF INDIC [URIN] Stat - Assessment/Plan Last 24 Hours: My Active Orders 07/24/18 10:47 Hemoccult [Fecal Occult Blood Collection] [RC] ASDIRECTED 07/24/18 11:08 COMPREHENSIVE METABOLIC PN,CMP [CHEM] Stat 07/24/18 11:09 Communication Order [RC] STAT 07/24/18 11:14 UA RFX WILY AND CULT IF INDIC [URIN] Stat
[2018-07-24 10:45] VITALS: BP 148/94
[2018-07-24 11:54] LABS: CHLORIDE,CL 106 mmol/L (98-107); SODIUM,NA 141 mmol/L (136-145)
== END 2018-07-24 12:21 | disposition home or self-care (01) ==
LOC: MW.ED 10:32
DX: K64.8 Other hemorrhoids (principal); N39.0 Urinary tract infection, site not specified; Z79.899 Other long term (current) drug therapy
CPT/HCPCS: 36415; 80053; 81001; 81025; 85025; 85610; 85730; 87086; 99283

== ENCOUNTER 2019-03-11 18:31 | Emergency (ER) | payer OTHER ==
--- NOTE | 2019-03-11 18:40 | EDM.PDOC ---
ED HPI GENERAL MEDICAL PROBLEM - General Chief Complaint: Upper Extremity Injury/Pain Stated Complaint: FELL AND INJURED HAND Time Seen by Provider: 03/11/19 18:33 - History of Present Illness INITIAL COMMENTS - FREE TEXT/NARRATIVE: HISTORY AND PHYSICAL: History of present illness: Patient a 23 year female presents status post fall she injured her right wrist and hand she also sustained a minor abrasion to her forearm she denies any head or neck pain or trauma or any other concern. Patient is up-to-date on her tetanus Review of systems: As per history of present illness and below otherwise all systems reviewed and negative. Past medical history: As per history of present illness and as reviewed below otherwise noncontributory. Surgical history: As per history of present illness and as reviewed below otherwise noncontributory. Social history: No reported history of drug or alcohol abuse. Family history: As per history of present illness and as reviewed below otherwise noncontributory. Physical exam: HEENT: Atraumatic, normocephalic, pupils reactive, negative for conjunctival pallor or scleral icterus, mucous membranes moist, throat clear, neck supple, nontender, trachea midline. Lungs: Clear to auscultation, breath sounds equal bilaterally, chest nontender. Heart: S1S2, regular, negative for clicks, rubs, or JVD. Abdomen: Soft, nondistended, nontender. Negative for masses or hepatosplenomegaly. Negative for costovertebral tenderness. Pelvis: Stable nontender. Genitourinary: Deferred. Rectal: Deferred. Extremities: Right hand wrist has tenderness over the dorsal aspect is no gross deformity or slightly limited range of motion secondary to pain she minor abrasion noted to the right forearm Neuro: Awake, alert, oriented. Cranial nerves II through XII unremarkable. Cerebellum unremarkable. Motor and sensory unremarkable throughout. Exam nonfocal. Diagnostics: Right hand/wrist Therapeutics: To be determined Impression: #1 right hand/wrist injury Definitive disposition and diagnosis as appropriate pending reevaluation and review of above. 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 Musculoskeletal History: Reports: None Neurological History: Reports: None Psychiatric History: Reports: Anxiety Endocrine/Metabolic History: Reports: None Hematologic History: Reports: None Immunologic History: Reports: None Oncologic (Cancer) History: Reports: None Dermatologic History: Reports: None - Infectious Disease History Infectious Disease History: Reports: None - Past Surgical History GI Surgical History: Reports: Cholecystectomy Social & Family History - Family History Family Medical History: Noncontributory - Caffeine Use Caffeine Use: Reports: None Review of Systems - Review of Systems Review Of Systems: Comprehensive ROS is negative, except as noted in HPI. ED EXAM, GENERAL - Physical Exam Exam: See Below (See dictation) Course - Vital Signs Last Recorded V/S: Last Vital Signs Temp 35.6 C 03/11/19 18:40 Pulse 82 03/11/19 18:40 Resp 18 03/11/19 18:40 BP 176/83 H 03/11/19 18:40 Pulse Ox 99 03/11/19 18:40 Departure - Departure Time of Disposition: 19:46 Disposition: Home, Self-Care 01 Condition: Good Clinical Impression: Wrist injury, Hand injury - Discharge Information Instructions: Wrist Sprain, Adult Referrals: PCP,Unknown [Primary Care Provider] - Forms: ED Department Discharge Additional Instructions: The following information is given to patients seen in the emergency department who are being discharged to home. This information is to outline your options for follow-up care. We provide all patients seen in our emergency department with a follow-up referral. The need for follow-up, as well as the timing and circumstances, are variable depending upon the specifics of your emergency department visit. If you don't have a primary care physician on staff, we will provide you with a referral. We always advise you to contact your personal physician following an emergency department visit to inform them of the circumstance of the visit and for follow-up with them and/or the need for any referrals to a consulting specialist. The emergency department will also refer you to a specialist when appropriate. This referral assures that you have the opportunity for followup care with a specialist. All of these measure are taken in an effort to provide you with optimal care, which includes your followup. Under all circumstances we always encourage you to contact your private physician who remains a resource for coordinating your care. When calling for followup care, please make the office aware that this follow-up is from your recent emergency room visit. If for any reason you are refused follow-up, please contact the [facility] emergency department at and asked to speak to the emergency department charge nurse. [facility] - [facility] [address], [address] [place] [address] Splint as directed Motrin/ Tylenol as directed follow-up orthopedic surgery above as needed as discussed and return as needed as discussed
--- NOTE | 2019-03-11 19:32 | CR ---
Indication: Fall Technique: Two views of the right hip Comparison: None available Findings: Bones: Alignment is normal. No fractures or bone lesions. Joint spaces: Unremarkable. Soft tissues: Unremarkable. Impression: Negative. Dictated by Orlin Goldstein MD @ 03/11/2019 7:30:54 PM Dictated by: Orlin Goldstein MD @ 03/11/2019 19:31:00 (Electronically Signed)
--- NOTE | 2019-03-11 19:34 | CR ---
Indication: Fall Technique: Two views of the right wrist Comparison: None available Findings: Bones: No acute fracture or dislocation. A small bone island in the distal radius. Joint spaces: Unremarkable. Soft tissues: Unremarkable. Impression: Negative. Dictated by Orlin Goldstein MD @ 03/11/2019 7:32:30 PM Dictated by: Orlin Goldstein MD @ 03/11/2019 19:33:00 (Electronically Signed)
[2019-03-11 20:00] VITALS: BP 150/92; PULSE 73
== END 2019-03-11 19:56 | disposition home or self-care (01) ==
LOC: MW.ED 18:31
DX: S69.91XA Unspecified injury of right wrist, hand and finger(s), initial encounter (principal); Z91.040 Latex allergy status; Z79.899 Other long term (current) drug therapy; W19.XXXA Unspecified fall, initial encounter
CPT/HCPCS: 73100-26-RT; 73100-RT; 73120-26-RT; 73120-RT; 99283; 99283-25

== ENCOUNTER 2021-03-03 09:07 | Emergency (ER) | payer OTHER ==
--- NOTE | 2021-03-03 09:36 | EDM.PDOC ---
ED HPI GENERAL MEDICAL PROBLEM - General Chief Complaint: Respiratory Problem Stated Complaint: SOB,CHEST PAIN Time Seen by Provider: 03/03/21 09:11 Source of Information: Reports: Patient History Limitations: Reports: No Limitations - History of Present Illness INITIAL COMMENTS - FREE TEXT/NARRATIVE: 25-year-old female past medical history hypertension, asthma, obesity presents for shortness of breath, chest tightness, nonproductive cough, subjective fever since around 7 this morning. Patient states she was in normal state of health last night. She denies any nausea or vomiting. She notes that she did receive the COVID-19 [employer] vaccination back in July 2020. She has not received a Covid vaccine booster. ribcage Pain Score (Numeric/FACES): 6 - Related Data Allergies Allergy/AdvReac Type Severity Reaction Status Date / Time latex Allergy Rash Verified 03/03/21 09:32 Home Meds: Home Meds Albuterol Sulfate [Albuterol Sulfate Hfa] 2 puff INH Q6H PRN 03/03/21 [History] Escitalopram [Lexapro] 10 mg PO DAILY 03/03/21 [History] Past Medical History - Past Health History Medical/Surgical History: Denies Medical/Surgical History HEENT History: Reports: None Cardiovascular History: Reports: None Respiratory History: Reports: None Gastrointestinal History: Reports: None Genitourinary History: Reports: None 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 Musculoskeletal History: Reports: None Neurological History: Reports: None Psychiatric History: Reports: Anxiety Endocrine/Metabolic History: Reports: None Hematologic History: Reports: None Immunologic History: Reports: None Oncologic (Cancer) History: Reports: None Dermatologic History: Reports: None - Infectious Disease History Infectious Disease History: Reports: None - Past Surgical History GI Surgical History: Reports: Cholecystectomy Social & Family History - Family History Family Medical History: No Pertinent Family History - Caffeine Use Caffeine Use: Reports: None ED ROS GENERAL - Review of Systems Review Of Systems: Comprehensive ROS is negative, except as noted in HPI. ED EXAM, GENERAL - Physical Exam Exam: See Below Exam Limited By: No Limitations General Appearance: Alert, WD/WN, No Apparent Distress Ears: Hearing Grossly Normal Throat/Mouth: Normal Voice, No Airway Compromise Head: Atraumatic, Normocephalic Respiratory/Chest: No Respiratory Distress, Lungs Clear, Normal Breath Sounds, No Accessory Muscle Use Cardiovascular: Normal Peripheral Pulses, Regular Rate, Rhythm Extremities: Normal Inspection Neurological: Alert Psychiatric: Normal Affect, Normal Mood Skin Exam: Warm, Dry, Intact, Normal Color Course - Vital Signs Last Recorded V/S: Last Vital Signs Temp 99.5 F 03/03/21 09:36 Pulse 95 03/03/21 09:36 Resp 20 03/03/21 09:36 BP 144/99 H 03/03/21 09:36 Pulse Ox 92 L 03/03/21 09:36 - Orders/Labs/Meds Labs: Laboratory Tests 03/03/21 Range/Units 09:45 SARS-CoV-2 RNA (ADRIEL) NEGATIVE (NEGATIVE) - Re-Assessments/Exams Free Text/Narrative Re-Assessment/Exam: 03/03/21 09:36 Patient symptoms are concerning for COVID-19 infection. We will get COVID-19 swab. Will get chest x-ray. 03/03/21 10:44 COVID-19 testing is negative. Will discharge with prednisone for possible bronchitis. Departure - Departure Time of Disposition: 10:46 Disposition: Home, Self-Care 01 Condition: Good Clinical Impression: Bronchitis - Discharge Information Instructions: Acute Bronchitis, Adult Referrals: Kingsley Alva MD [Primary Care Provider] - Forms: ED Department Discharge Additional Instructions: Your Covid swab is negative. Your chest x-ray does not show any evidence of pneumonia. You do have Covid-like symptoms, and they just began today, so unfortunately this could be an early Covid infection that we are missing with today's swab. I would try to get reswabbed in a couple of days particularly if symptoms are worsening. In the meantime we will treat this like an acute bronchitis and put you on a 5-day course of prednisone which is a steroid and act as an anti-inflammatory to help open up the lungs. The following information is given to patients seen in the emergency department who are being discharged to home. This information is to outline your options for follow-up care. We provide all patients seen in our emergency department with a follow-up referral. The need for follow-up, as well as the timing and circumstances, are variable depending upon the specifics of your emergency department visit. If you don't have a primary care physician on staff, we will provide you with a referral. We always advise you to contact your personal physician following an emergency department visit to inform them of the circumstance of the visit and for follow-up with them and/or the need for any referrals to a consulting specialist. The emergency department will also refer you to a specialist when appropriate. This referral assures that you have the opportunity for follow-up care with a specialist. All of these measure are taken in an effort to provide you with optimal care, which includes your follow-up. Under all circumstances we always encourage you to contact your private physician who remains a resource for coordinating your care. When calling for follow-up care, please make the office aware that this follow-up is from your recent emergency room visit. If for any reason you are refused follow-up, please contact the [facility] Emergency Department at and asked to speak to the emergency department charge nurse. Please follow up with your primary care physician. If you do not have a primary care physician, see below: [facility] [address] [place] [id number] [facility] [address] [place] [id number] [facility] [address] [place] [id number] Sepsis Event Note (ED) - Focused Exam Vital Signs: Vital Signs Temp Pulse Resp BP Pulse Ox 03/03/21 09:36 99.5 F 95 20 144/99 H 92 L
--- NOTE | 2021-03-03 10:20 | CR ---
CHEST 1 VIEW AP INDICATION: Possible COVID-19 pneumonia IMPRESSION: Normal heart size and vascular pattern. Lungs are clear of focal opacities. No pneumothorax or pleural abnormality. Dictated by Tulio Mcgee MD @ 03/03/2021 10:19:01 AM (Electronically Signed)
[2021-03-03 10:54] VITALS: BP 152/100; PULSE 84
== END 2021-03-03 10:54 | disposition home or self-care (01) ==
LOC: MW.ED 09:07
DX: J40 Bronchitis, not specified as acute or chronic (principal); Z91.040 Latex allergy status; Z20.822 Contact with and (suspected) exposure to COVID-19
CPT/HCPCS: 71045; 71045-26; 99285-25; U0002

== ENCOUNTER 2021-03-06 17:31 | Emergency (ER) | payer OTHER ==
[2021-03-06] MEDS ORDERED: Albuterol/Ipratropium 3.0-0.5 MG/3 ML Neb Soln ONE (17:47)
--- NOTE | 2021-03-06 17:47 | EDM.PDOC ---
ED HPI GENERAL MEDICAL PROBLEM - General Chief Complaint: Respiratory Problem Stated Complaint: SOB Time Seen by Provider: 03/06/21 17:32 Source of Information: Reports: Patient History Limitations: Reports: No Limitations - History of Present Illness INITIAL COMMENTS - FREE TEXT/NARRATIVE: HISTORY AND PHYSICAL: History of present illness: Patient is a 25-year-old female who presents to the emergency room with complaints of shortness of breath and cough over the past 4 to 5 days. Patient states she was seen in our emergency room on 03/03/2021 for the symptoms and was told it was viral upper respiratory illness although she had no pneumonia or COVID-19. Symptoms progressively got worse, she was seen at the respiratory clinic yesterday and re-swabbed for COVID-19 which was negative. Did start her on prednisone and Z-Jong, she is taken 2 days worth of the antibiotic and feels no improvement. Patient states she has a history of asthma and this does not feel similar to a typical asthma attack or exacerbation. She has been using her proair inhaler and duo nebs every 3-4 hours without any improvement of symptoms. Patient denies any fever, chills, headache, change in vision, syncope or near syncope. Denies any chest pain, back pain, abdominal pain, nausea, vomiting, diarrhea, constipation or dysuria. Has not noted any blood in urine or stool. Patient has been eating and drinking appropriately. She has no concern for , refuses testing. No recent travel or sick contacts. Review of systems: As per history of present illness and below otherwise all systems reviewed and negative. Past medical history: As per history of present illness and as reviewed below otherwise noncontributory. Surgical history: As per history of present illness and as reviewed below otherwise noncontributory. Social history: See social history for further information Family history: As per history of present illness and as reviewed below otherwise noncontributo ry. Physical exam: General: Well developed and well nourished 25-year-old female. Alert and orientated x 3. Nontoxic in appearance and in no acute distress. Vital signs are stable and have been reviewed by me. Nursing notes were reviewed. HEENT: Atraumatic, normocephalic, pupils equal and reactive bilaterally, negative for conjunctival pallor or scleral icterus, mucous membranes moist, trachea midline. No drooling or trismus noted. No meningeal signs. No hot potato voice noted. Lungs: Poor air exchange and diminished to auscultation bilaterally. Fine/faint wheezes on expiration bilaterally. No rales, or rhonchi. Chest nontender. Normal work of breathing, no accessory muscles used. Heart: S1S2, regular rate and rhythm without overt murmur, gallops, or rubs. No JVD. No peripheral edema Abdomen: Soft, nondistended, nontender. Normoactive bowel sounds. Negative for masses or costovertebral tenderness. Skin: Intact, warm, dry. No lesions or rashes noted. Hematologic: No petechiae or purpra. Mucosa appropriate color and normal nail bed color and refill. Extremities: Atraumatic, moves all extremities per self without difficulty or deficits, negative for cords or calf pain. Neurovascular unremarkable. Neuro: Awake, alert, oriented. Cranial nerves II through XII unremarkable. Cerebellum unremarkable. Motor and sensory unremarkable throughout. Exam nonfocal. Psychiatric: Mood and affect are appropriate. Normal thought process. Answering questions appropriately. Please note that the patient was seen and evaluated during the 2019 SARS-CoV-2 novel coronavirus pandemic period. Community viral transmission is ongoing at time of this encounter and the emergency department is operating under pandemic response procedures. Medical Decision Making: Patient is a 25-year-old female who presents to the emergency room with complaints of shortness of breath and cough over the past 4 to 5 days. She states she is currently on azithromycin and prednisone. She has been using her rescue inhaler and nebulizer machine without much relief. Patient does have poor air exchange and fine expiratory wheezing. Since patient has had multiple chest x-rays without any findings I will do a CTA of the chest to investigate further. We will also do some basic lab work at this time. Patient does have a leukocytosis although this could be from her steroid use. CT chest is negative for acute pulmonary embolism. Mild bilateral hazy ground- glass opacities may be infectious/inflammatory versus atelectasis. Mild diffuse bronchial wall thickening suggesting bronchitis. Mild splenomegaly. Patient's lung sounds did improve after the DuoNeb. I will add on Rocephin since she does have IV access in case this is community-acquired. Patient's vital signs are stable. She did find improvement with the Tessalon Perles. I have talked with the patient about today's findings, in addition to providing specific details for plan of care. Reassessment at the time of disposition demonstrates that the patient is in no acute distress. Patient will continue taking the antibiotic she has prescribed. The patient is stable for discharge, counseling was provided and we discussed in great detail signs and symptoms that would prompt them to return to the Emergency Department. Medication, follow up and supportive care measures were reviewed and discussed. Voices understanding and is agreeable to plan of care. Denies any further questions or concerns at this time. Diagnostics: CBC, CMP, CTA chest Therapeutics: IV fluid, Rocephin Prescription: Tessalon Perles Impression: Bronchitis Plan: 1. You were evaluated today on an emergent basis. Your lab work and CT chest are suggestive of bronchitis. Please keep taking your prescribed medications as directed. 2. You can alternate Tylenol and ibuprofen as needed for pain and fever management. 3. We encourage you to follow up with your primary care provider and/or recommended specialist in the next few days for re-evaluation and further care/management. 4. If your symptoms should worsen, new symptoms develop or any of the signs and symptoms we discussed should arise please return to the emergency room or call 911 (if needed). Definitive disposition and diagnosis as appropriate pending reevaluation and review of above. - Related Data Allergies Allergy/AdvReac Type Severity Reaction Status Date / Time latex Allergy Rash Verified 03/06/21 17:42 Home Meds: Home Meds Albuterol Sulfate [Albuterol Sulfate Hfa] 2 puff INH Q6H PRN 03/03/21 [History] Escitalopram [Lexapro] 10 mg PO DAILY 03/03/21 [History] predniSONE 40 mg PO DAILY 5 Days #10 tab 03/03/21 [Rx] Benzonatate [Tessalon Perles] 100 mg PO TID PRN #30 cap 03/06/21 [Rx] Past Medical History - Past Health History Medical/Surgical History: Denies Medical/Surgical History HEENT History: Reports: None Cardiovascular History: Reports: Hypertension Respiratory History: Reports: Asthma Gastrointestinal History: Reports: None Genitourinary History: Reports: None 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 Musculoskeletal History: Reports: None Neurological History: Reports: None Psychiatric History: Reports: Anxiety Endocrine/Metabolic History: Reports: None Hematologic History: Reports: None Immunologic History: Reports: None Oncologic (Cancer) History: Reports: None Dermatologic History: Reports: None - Infectious Disease History Infectious Disease History: Reports: Chicken Pox - Past Surgical History Cardiovascular Surgical History: Reports: None GI Surgical History: Reports: Cholecystectomy Social & Family History - Family History Family Medical History: No Pertinent Family History - Caffeine Use Caffeine Use: Reports: None ED ROS GENERAL - Review of Systems Review Of Systems: Comprehensive ROS is negative, except as noted in HPI. ED EXAM, GENERAL - Physical Exam Exam: See Below (See dictation) Course - Vital Signs Last Recorded V/S: Last Vital Signs Temp 98.2 F 03/06/21 17:40 Pulse 71 03/06/21 19:20 Resp 18 03/06/21 19:20 BP 149/84 H 03/06/21 17:40 Pulse Ox 94 L 03/06/21 19:20 - Orders/Labs/Meds Orders: Active Orders 24 hr Category Date Time Status Sodium Chloride 0.9% [Normal Saline] 1,000 ml Med 03/06/21 18:00 Active IV ASDIRECTED cefTRIAXone [Rocephin in Dextrose,Iso-Osm 1 GM/50 ML] 1 Med 03/06/21 19:53 Ordered gm Premix Bag 1 bag IV ONETIME Medication Orders Sodium Chloride (Normal Saline) 1,000 mls @ 125 mls/hr IV ASDIRECTED FRANKLIN Last Admin: 03/06/21 18:05 Dose: 125 mls/hr Documented by: ADAM Ceftriaxone Sodium/Dextrose 1 (gm/ Premix) 50 mls @ 100 mls/hr IV ONETIME ONE Stop: 03/06/21 20:22 Labs: Laboratory Tests 03/06/21 03/06/21 03/06/21 Range/Units 18:00 18:00 18:23 WBC 14.00 H (4.0-11.0) K/uL RBC 5.43 (4.30-5.90) M/uL Hgb 14.7 (12.0-16.0) g/dL Hct 43.6 (36.0-46.0) % MCV 80.3 (80.0-98.0) fL MCH 27.1 (27.0-32.0) pg MCHC 33.7 (31.0-37.0) g/dL RDW Std Deviation 40.0 (28.0-62.0) fl RDW Coeff of Francisco 14 (11.0-15.0) % Plt Count 272 (150-400) K/uL MPV 10.90 (7.40-12.00) fL Neut % (Auto) 85.8 H (48.0-80.0) % Lymph % (Auto) 9.1 L (16.0-40.0) % Catron % (Auto) 4.9 (0.0-15.0) % Eos % (Auto) 0.1 (0.0-7.0) % Baso % (Auto) 0.1 (0.0-1.5) % Neut # (Auto) 12.0 H (1.4-5.7) K/uL Lymph # (Auto) 1.3 (0.6-2.4) K/uL Catron # (Auto) 0.7 (0.0-0.8) K/uL Eos # (Auto) 0.0 (0.0-0.7) K/uL Baso # (Auto) 0.0 (0.0-0.1) K/uL Nucleated RBC % 0.0 /100WBC Nucleated RBCs # 0 K/uL Sodium 137 (136-145) mmol/L Potassium 4.0 (3.5-5.1) mmol/L Chloride 102 (98-107) mmol/L Carbon Dioxide 22.8 (21.0-32.0) mmol/L BUN 13 (7.0-18.0) mg/dL Creatinine 1.0 (0.6-1.0) mg/dL Est Cr Clr Drug Dosing 82.18 mL/min Estimated GFR (MDRD) > 60.0 ml/min Glucose 228 H (74-106) mg/dL Calcium 9.3 (8.5-10.1) mg/dL Total Bilirubin 0.2 (0.2-1.0) mg/dL AST 17 (15-37) IU/L ALT 43 (14-63) IU/L Alkaline Phosphatase 83 (46-116) U/L Total Protein 7.5 (6.4-8.2) g/dL Albumin 3.4 (3.4-5.0) g/dL Globulin 4.1 H (2.6-4.0) g/dL Albumin/Globulin Ratio 0.8 L (0.9-1.6) Urine Color YELLOW Urine Appearance CLEAR Urine pH 6.0 (5.0-8.0) Ur Specific [place] >= 1.030 (1.001-1.035) Urine Protein TRACE H (NEGATIVE) mg/dL Urine Glucose (UA) NEGATIVE (NEGATIVE) mg/dL Urine Ketones TRACE H (NEGATIVE) mg/dL Urine Occult Blood TRACE-INTACT H (NEGATIVE) Urine Nitrite NEGATIVE (NEGATIVE) Urine Bilirubin NEGATIVE (NEGATIVE) Urine Urobilinogen 0.2 (<2.0) EU/dL Ur Leukocyte Esterase NEGATIVE (NEGATIVE) Urine RBC 1-3 (0-2/HPF) Urine WBC 0-1 (0-5/HPF) Ur Epithelial Cells FEW (NONE-FEW) Calcium Oxalate Crystal FEW (NEGATIVE) Urine Bacteria RARE (NEGATIVE) Urine Mucus MODERATE (NONE-MOD) Meds: Medications Generic Name Dose Route Start Last Admin Trade Name Freq PRN Reason Stop Dose Admin Sodium Chloride 1,000 mls @ 125 mls/hr 03/06/21 18:00 03/06/21 18:05 Normal Saline IV 125 mls/hr ASDIRECTED FRANKLIN Administration Ceftriaxone Sodium/Dextrose 1 50 mls @ 100 mls/hr 03/06/21 19:53 gm/ Premix IV 03/06/21 20:22 ONETIME ONE Discontinued Medications Generic Name Dose Route Start Last Admin Trade Name Freq PRN Reason Stop Dose Admin Albuterol/Ipratropium Confirm 03/06/21 17:47 03/06/21 18:02 Albuterol/Ipratropium 3.0-0.5 Mg/3 Ml Neb Soln Administered 03/06/21 17:48 3 ml Dose Administration 3 ml .ROUTE .STK-MED ONE Benzonatate 200 mg 03/06/21 19:43 03/06/21 19:49 Benzonatate 100 Mg Cap PO 03/06/21 19:44 200 mg ONETIME ONE Administration Iopamidol 100 ml 03/06/21 18:53 03/06/21 18:59 Iopamidol 755 Mg/Ml 500 Ml Multipack Bottle IVPUSH 03/06/21 18:54 100 ml ONETIME STA Administration Departure - Departure Time of Disposition: 19:54 Disposition: Home, Self-Care 01 Clinical Impression: Bronchitis - Discharge Information Prescriptions: Benzonatate [Tessalon Perles] 100 mg PO TID PRN #30 cap PRN Reason: Cough Instructions: Acute Bronchitis, Adult, [id number] Referrals: PCP,None [Primary Care Provider] - Forms: ED Department Discharge Additional Instructions: The following information is given to patients seen in the emergency department who are being discharged to home. This information is to outline your options for follow-up care. We provide all patients seen in our emergency department with a follow-up referral. The need for follow-up, as well as the timing and circumstances, are variable depending upon the specifics of your emergency department visit. If you don't have a primary care physician on staff, we will provide you with a referral. We always advise you to contact your personal physician following an emergency department visit to inform them of the circumstance of the visit and for follow-up with them and/or the need for any referrals to a consulting specialist. The emergency department will also refer you to a specialist when appropriate. This referral assures that you have the opportunity for follow-up care with a specialist. All of these measure are taken in an effort to provide you with optimal care, which includes your follow-up. Under all circumstances we always encourage you to contact your private physician who remains a resource for coordinating your care. When calling for follow-up care, please make the office aware that this follow-up is from your recent emergency room visit. If for any reason you are refused follow-up, please contact the [facility] Emergency Department at and asked to speak to the emergency department charge nurse. [facility] [address] [place] [id number] [facility] [address] [place] [id number] Thank you for choosing the [facility] emergency department in [place] for your medical needs today. It was a pleasure caring for you. Today you were seen in the emergency department for cough Your prescription was electronically sent to: [place] [facility] 1. You were evaluated today on an emergent basis. Your lab work and CT chest are suggestive of bronchitis. Please keep taking your prescribed medications as directed. 2. You can alternate Tylenol and ibuprofen as needed for pain and fever management. 3. We encourage you to follow up with your primary care provider and/or recommended specialist in the next few days for re-evaluation and further care/management. 4. If your symptoms should worsen, new symptoms develop or any of the signs and symptoms we discussed should arise please return to the emergency room or call 911 (if needed). Sepsis Event Note (ED) - Evaluation Sepsis Screening Result: No Definite Risk - Focused Exam Vital Signs: Vital Signs Temp Pulse Resp BP Pulse Ox 03/06/21 19:20 71 18 94 L 03/06/21 17:40 98.2 F 98 22 H 149/84 H 93 L - My Orders Last 24 Hours: My Active Orders 03/06/21 18:00 Sodium Chloride 0.9% [Normal Saline] 1,000 ml IV ASDIRECTED 03/06/21 19:53 cefTRIAXone [Rocephin in Dextrose,Iso-Osm 1 GM/50 ML] 1 gm Premix Bag 1 bag IV ONETIME - Assessment/Plan Last 24 Hours: My Active Orders 03/06/21 18:00 Sodium Chloride 0.9% [Normal Saline] 1,000 ml IV ASDIRECTED 03/06/21 19:53 cefTRIAXone [Rocephin in Dextrose,Iso-Osm 1 GM/50 ML] 1 gm Premix Bag 1 bag IV ONETIME
[2021-03-06] MEDS ORDERED: Sodium Chloride 0.9% 1,000 ML IV SCH (18:00)
[2021-03-06 18:30] LABS: BLOOD UREA NITROGEN,BUN 13 mg/dL (7.0-18.0); CARBON DIOXIDE,CO2 22.8 mmol/L (21.0-32.0); CHLORIDE,CL 102 mmol/L (98-107); GLUCOSE RANDOM 228 mg/dL (74-106); SODIUM,NA 137 mmol/L (136-145)
[2021-03-06] MEDS ORDERED: Iopamidol 755 MG/ML 500 ML Multipack Bottle IVPUSH STA (18:53)
[2021-03-06] MEDS ORDERED: Benzonatate 100 MG Cap PO ONE (19:43)
--- NOTE | 2021-03-06 19:49 | CT ---
INDICATION: Shortness of breath, chest pain, cough. COMPARISON: Chest radiograph 03/03/2021. TECHNIQUE: CT of the chest with 100 cc of Isovue 370 IV contrast. Coronal and sagittal reconstructions. 3D post processing was performed. FINDINGS: Normal heart size. Normal caliber thoracic aorta and central pulmonary arteries. Negative for acute pulmonary embolism. No pericardial effusion. No thoracic lymphadenopathy. No focal consolidation, pleural effusion, or pneumothorax. There are mild hazy ground-glass opacities in the upper lobes, superior segment right lower lobe, and perihilar left lower lobe which may be infectious/inflammatory versus atelectasis. No pulmonary nodules identified. Mild diffuse bronchial wall thickening. No central endobronchial lesion. The imaged thyroid gland is normal in appearance. Cholecystectomy. The spleen is enlarged measuring 13.5 cm in length. The visualized upper abdomen is otherwise unremarkable. The bones are unremarkable. IMPRESSION: 1. Negative for acute pulmonary embolism. 2. Mild bilateral hazy ground-glass opacities may be infectious/inflammatory versus atelectasis. 3. Mild diffuse bronchial wall thickening suggesting bronchitis. 4. Mild splenomegaly. Please note that all CT scans at this facility use dose modulation, iterative reconstruction, and/or weight-based dosing when appropriate to reduce radiation dose to as low as reasonably achievable. Dictated by Moira Pandey MD @ 03/06/2021 7:48:05 PM (Electronically Signed)
[2021-03-06] MEDS ORDERED: cefTRIAXone 1 GM in Premix Bag 1 BAG IV ONE (19:53)
[2021-03-06 19:59] VITALS: BP 154/94; PULSE 67
== END 2021-03-06 20:28 | disposition home or self-care (01) ==
LOC: MW.ED 17:31
DX: J40 Bronchitis, not specified as acute or chronic (principal); Z91.040 Latex allergy status
CPT/HCPCS: 36415; 71275; 80053; 81001; 85025; 96365; 99285; A9270; J0696; J7030; Q9967; J7620-GY

== ENCOUNTER 2021-05-09 21:19 | Emergency (ER) | payer OTHER ==
[2021-05-09] MEDS ORDERED: Sodium Chloride 0.9% 2.5 ML Syringe FLUSH PRN (22:50)
[2021-05-09] MEDS ORDERED: Sodium Chloride 0.9% 10 ML Syringe FLUSH PRN (22:50)
[2021-05-10] MEDS ORDERED: diphenhydrAMINE 50 MG/ML SDV IM ONE (00:08)
[2021-05-10] MEDS ORDERED: Prochlorperazine 10 MG/2 ML SDV IM ONE (00:08)
[2021-05-10] MEDS ORDERED: Ketorolac 60 MG/2 ML SDV IM ONE (00:08)
[2021-05-10 00:10] LABS: BLOOD UREA NITROGEN,BUN 9 mg/dL (7.0-18.0); CARBON DIOXIDE,CO2 27.2 mmol/L (21.0-32.0); CHLORIDE,CL 105 mmol/L (98-107); GLUCOSE RANDOM 105 mg/dL (74-106); POTASSIUM,K 3.4 mmol/L (3.5-5.1); SODIUM,NA 138 mmol/L (136-145)
[2021-05-10 00:53] VITALS: BP 149/89; PULSE 77
== END 2021-05-10 00:54 | disposition home or self-care (01) ==
LOC: MW.ED 21:19
DX: R51.9 Headache, unspecified (principal); I10 Essential (primary) hypertension; Z91.040 Latex allergy status; Z72.0 Tobacco use
CPT/HCPCS: 70450; 71045; 80053; 81003; 81025; 84484; 85025; 93005; 96372; 99284; J0780; J1200; J1885

== ENCOUNTER 2022-01-11 19:10 | Emergency (ER) | payer OTHER ==
[2022-01-11] MEDS ORDERED: predniSONE 20 MG Tab PO ONE (20:02)
== END 2022-01-11 20:00 ==
LOC: MW.ED 19:10
DX: B88.9 Infestation, unspecified (principal)
CPT/HCPCS: 99282; A9270

== ENCOUNTER 2025-01-06 23:44 | Emergency (ER) | payer OTHER ==
[2025-01-07] MEDS: methylPREDNISolone Sodium Succinate 40 MG/1 ML SDV IM ONE (01:05)
[2025-01-07 02:46] VITALS: BP 145/83; PULSE 81
== END 2025-01-07 02:54 | disposition home or self-care (01) ==
LOC: MW.ED 23:44
DX: J20.9 Acute bronchitis, unspecified (principal); I10 Essential (primary) hypertension; Z91.040 Latex allergy status; Z79.899 Other long term (current) drug therapy; Z90.49 Acquired absence of other specified parts of digestive tract
CPT/HCPCS: 71046; 87428; 93005; 96372; 99284; J2919; J7620; 93010; 99283; A9270-GY